=== PATIENT | male | born 1990 | race Caucasian/White ===

== ENCOUNTER 2018-08-21 15:05 | Emergency (ER) | payer BC, OTHER ==
[2018-08-21 15:18] VITALS: BP 161/99
[2018-08-21] MEDS ORDERED: Lidocaine 2% 5 ML SDV ONE (15:21)
[2018-08-21] MEDS ORDERED: Diphtheria,Pertussis(Acell),Tetanus Vaccine 0.5 ML SDV IM ONE (15:34)
--- NOTE | 2018-08-21 15:39 | EDM.PDOC ---
ED HPI GENERAL MEDICAL PROBLEM - General Chief Complaint: General Stated Complaint: Finger laceration Time Seen by Provider: 08/21/18 15:33 Source of Information: Reports: Patient History Limitations: Reports: No Limitations - History of Present Illness INITIAL COMMENTS - FREE TEXT/NARRATIVE: Patient is a 28-year-old gentleman who presents to the emergency department this afternoon with complaint of laceration to left thumb. Patient states while working, accidentally cut finger on sharp metal. Patient does not believe he is up-to-date with tetanus. He'll be given tetanus here in the emergency department. Patient denies any other injury or insult. Onset: Today Duration: Hour(s): Location: Reports: Upper Extremity, Left Quality: Reports: Burning Severity: Mild Improves with: Reports: None Worsens with: Reports: None Context: Reports: Trauma (Cut with sharp instrument) Associated Symptoms: Reports: No Other Symptoms Left Finger-Thumb Pain Score (Numeric/FACES): 3 - Related Data Allergies Allergy/AdvReac Type Severity Reaction Status Date / Time No Known Drug Allergies Allergy Other Verified 08/21/18 15:17 Home Meds: Home Meds . [No Known Home Meds] 08/21/18 [History] Past Medical History Neurological History: Reports: Migraines Dermatologic History: Reports: Other (See Below) Other Dermatologic History: impetigo Social & Family History - Tobacco Use Smoking Status *Q: Current Every Day Smoker Years of Tobacco use: 16 Packs/Tins Daily: 0.7 Second Hand Smoke Exposure: Yes - Caffeine Use Caffeine Use: Reports: Coffee, Soda - Alcohol Use Days Per Week of Alcohol Use: 2 Number of Drinks Per Day: 4 Total Drinks Per Week: 8 - Recreational Drug Use Recreational Drug Use: No ED ROS GENERAL - Review of Systems Review Of Systems: ROS reveals no pertinent complaints other than HPI. Constitutional: Reports: No Symptoms HEENT: Reports: No Symptoms Respiratory: Reports: No Symptoms Cardiovascular: Reports: No Symptoms Endocrine: Reports: No Symptoms GI/Abdominal: Reports: No Symptoms : Reports: No Symptoms Musculoskeletal: Reports: Hand Pain Skin: Reports: Wound (Laceration to left thumb) Neurological: Reports: No Symptoms Psychiatric: Reports: No Symptoms Hematologic/Lymphatic: Reports: No Symptoms Immunologic: Reports: No Symptoms ED EXAM, GENERAL - Physical Exam Exam: See Below Exam Limited By: No Limitations General Appearance: Alert, WD/WN, No Apparent Distress Throat/Mouth: Normal Inspection, Normal Oropharynx, No Airway Compromise Respiratory/Chest: No Respiratory Distress Neurological: Alert, Oriented, Normal Cognition Psychiatric: Normal Affect, Normal Mood Skin Exam: Warm, Dry, Normal Color, No Rash, Wound/Incision (1.5 cm laceration to distal palmar surface of left thumb) ED GENERAL MEDICAL PROCEDURES - Laceration/Wound Repair Left Distal Digit - 1st (Thumb) Lac/wound length in cm: 1.5 Appearance: Superficial Distal NVT: Neuro & Vascular Intact, No Tendon Injury Anesthetic Type: Digital Local Anesthesia - Lidocaine (Xylocaine): 2% Plain Local Anesthetic Volume: 2cc Skin Prep: Providone-Iodine (Betadine) Closed with: Sutures Suture Size: 4-0 # of Sutures: 3 Suture Type: Silk, Interrupted Sterile Dressing Applied: Nurse Tetanus Status Addressed: Yes Complications: No Course - Vital Signs Last Recorded V/S: Last Vital Signs Temp 97.0 F 08/21/18 15:13 Pulse 71 08/21/18 15:13 Resp 18 08/21/18 15:13 BP 161/99 H 08/21/18 15:13 Pulse Ox 99 08/21/18 15:13 - Orders/Labs/Meds Orders: Active Orders 24 hr Category Date Time Status Vaccines to be Administered [RC] PER UNIT ROUTINE Care 08/21/18 15:34 Ordered Diphth,Pertuss(Acell),Tet Vac [Adacel] Med 08/21/18 15:34 Once 0.5 ml IM .ONCE ONE Meds: Medications Discontinued Medications Generic Name Dose Route Start Last Admin Trade Name Mindy PRN Reason Stop Dose Admin Lidocaine Confirm 08/21/18 15:21 Xylocaine-Mpf 2% Administered 08/21/18 15:22 Dose 5 ml .ROUTE .STK-MED ONE - Re-Assessments/Exams Free Text/Narrative Re-Assessment/Exam: 08/21/18 15:38 Patient afebrile, vital signs stable, tolerated procedure well. Patient will have sutures removed in 10 days at PCP. Departure - Departure Time of Disposition: 15:39 Disposition: Home, Self-Care 01 Condition: Good Clinical Impression: Finger laceration Qualifiers: Encounter type: initial encounter Finger: thumb Damage to nail status: without damage Foreign body presence: without foreign body Laterality: left Qualified Code(s): S61.012A - Laceration without foreign body of left thumb without damage to nail, initial encounter - Discharge Information Instructions: Laceration Care, Adult, [id number], Stitches, Susie, or Adhesive Wound Closure, [id number] Referrals: PCP,None [Primary Care Provider] - Additional Instructions: Follow-up with PCP in 10 days for suture removal. Return to emergency department sooner if symptoms continue or worsen. - My Orders Last 24 Hours: My Active Orders 08/21/18 15:34 Vaccines to be Administered [RC] PER UNIT ROUTINE Diphth,Pertuss(Acell),Tet Vac [Adacel] 0.5 ml IM .ONCE ONE - Assessment/Plan Last 24 Hours: My Active Orders 08/21/18 15:34 Vaccines to be Administered [RC] PER UNIT ROUTINE Diphth,Pertuss(Acell),Tet Vac [Adacel] 0.5 ml IM .ONCE ONE Assessment:: Laceration repair to right thumb Plan: Follow-up with PCP
[2018-08-21] MEDS ORDERED: Bacitracin/Neomycin/Polymyxin B Oint 0.9 GM U/D Packet ONE (15:44)
[2018-08-21] MEDS ORDERED: Bacitracin/Neomycin/Polymyxin B Oint 0.9 GM U/D Packet TOP ONE (15:52)
== END 2018-08-21 15:48 | disposition home or self-care (01) ==
LOC: KA.ED 15:05
DX: S61.012A Laceration without foreign body of left thumb without damage to nail, initial encounter (principal); Z23 Encounter for immunization; F17.210 Nicotine dependence, cigarettes, uncomplicated; W26.8XXA Contact with other sharp object(s), not elsewhere classified, initial encounter
CPT/HCPCS: 12001; 90471; 90715; 99283; J2001

== ENCOUNTER 2021-09-01 01:25 | Emergency (ER) | payer BC, OTHER ==
[2021-09-01] MEDS ORDERED: Sodium Chloride 0.9% 10 ML Syringe FLUSH PRN (01:57)
[2021-09-01 02:16] LABS: ANION GAP 16.5 mmol/L (5-15)
[2021-09-01 02:27] LABS: BARBITURATE SCREEN,URINE NEGATIVE (NEGATIVE); BENZODIAZEPINES SCREEN,URINE NEGATIVE (NEGATIVE)
[2021-09-01 02:28] LABS: TCA SCREEN,URINE NEGATIVE (NEGATIVE); THC SCREEN,URINE 50 NG/ML NEGATIVE (NEGATIVE)
[2021-09-01 02:40] VITALS: BP 139/94; PULSE 65
== END 2021-09-01 02:50 | disposition home or self-care (01) ==
LOC: KA.ED 01:25
DX: F41.9 Anxiety disorder, unspecified (principal); F14.10 Cocaine abuse, uncomplicated; F15.10 Other stimulant abuse, uncomplicated
CPT/HCPCS: 36415; 71046; 80053; 80305-QW; 84484; 85025; 85379; 93005; 99284

== ENCOUNTER 2024-01-11 19:14 | Emergency (ER) | payer BC ==
[2024-01-11] MEDS ORDERED: Sodium Chloride 0.9% 10 ML Syringe FLUSH PRN (19:40)
[2024-01-11 19:49] LABS: APPEARANCE,URINE SLIGHTLY CLOUDY (CLEAR); BASOPHILS ABSOLUTE AUTO 0.05 10^3/uL (0.00-0.10); BASOPHILS PERCENT AUTO 0.7 % (0.0-1.0); BILIRUBIN,URINE NEGATIVE (NEGATIVE); COLOR,URINE YELLOW (YELLOW); EOSINOPHILS ABSOLUTE AUTO 0.15 10^3/uL (0.10-0.30); EOSINOPHILS PERCENT AUTO 2.2 % (1.0-3.0); GLUCOSE,URINE NEGATIVE (NEGATIVE); HEMATOCRIT 46.6 % (40.0-52.0); HEMOGLOBIN 16.1 g/dL (13.0-17.0); IMMATURE GRAN ABSOLUTE AUTO 0.01 10^3/uL (0.00-0.50); IMMATURE GRAN PERCENT AUTO 0.1 % (0.0-5.0); KETONES,URINE NEGATIVE (NEGATIVE); LEUKOCYTE ESTERASE,URINE NEGATIVE (NEGATIVE); MEAN CORPUSCULAR HEMOGLOBIN 31.4 pg (27.0-31.0); MEAN CORPUSCULAR HGB CONC 34.5 g/dL (32.0-36.0); MEAN CORPUSCULAR VOLUME 90.8 fL (82.0-92.0); MEAN PLATELET VOLUME 8.5 fL (7.4-10.4); MONOCYTES ABSOLUTE AUTO 0.58 10^3/uL (0.10-0.80); MONOCYTES PERCENT AUTO 8.3 % (2.0-8.0); NEUTROPHILS ABSOLUTE AUTO 3.87 10^3/uL (2.50-7.00); NEUTROPHILS PERCENT AUTO 55.7 % (50.0-70.0); NITRITE,URINE NEGATIVE (NEGATIVE); OCCULT BLOOD,URINE LARGE (NEGATIVE); PH,URINE 5.5 (5.0-9.0); PLATELET COUNT,PLT 293 10^3/uL (150-400); PROTEIN,URINE NEGATIVE (NEGATIVE); RED BLOOD CELL COUNT 5.13 10^6/uL (4.50-6.00); RED CELL DISTRIBUTION WIDTH 12.2 % (11.5-14.5); UROBILINOGEN,URINE 0.2 E.U./dL (0.2-1.0); WHITE BLOOD CELL COUNT,WBC 6.96 10^3/uL (5.00-10.00)
[2024-01-11] MEDS: Sodium Chloride 0.9% 1,000 ML IV ONE (19:55)
[2024-01-11] MEDS: Ketorolac 30 MG/ML SDV IVPUSH ONE (19:55)
[2024-01-11 19:57] LABS: BACTERIA,URINE RARE /HPF (NONE TO FEW); EPITHELIAL CELLS,URINE RARE /LPF; RBC,URINE 40-50 /HPF (0-5); WBC,URINE 0-5 /HPF (0-5)
[2024-01-11 20:01] LABS: ANION GAP 11.1 mmol/L (5-15); BLOOD UREA NITROGEN,BUN 16 mg/dL (7-18); CALCIUM 8.7 mg/dL (8.7-10.3); CARBON DIOXIDE,CO2 31.1 mmol/L (21.0-32.0); CHLORIDE,CL 101 mmol/L (98-107); CREATININE 0.93 mg/dL (0.51-1.17); ESTIMATED GFR 110 mL/min (>=60); GLUCOSE RANDOM 95 mg/dL (70-140); POTASSIUM,K 4.2 mmol/L (3.5-5.1); SODIUM,NA 139 mmol/L (136-145)
[2024-01-11 21:01] VITALS: BP 125/83; PULSE 73
[2024-01-11] MEDS: Acetaminophen/HYDROcodone 325-10 MG Tab PO ONE (21:26)
== END 2024-01-11 21:35 | disposition home or self-care (01) ==
LOC: KA.ED 19:14
DX: N13.2 Hydronephrosis with renal and ureteral calculous obstruction (principal); Z79.899 Other long term (current) drug therapy
CPT/HCPCS: 74176; 80048; 81001; 85025; 96361; 96374; 99284-25; A9270-GY; J1885; J7030

== ENCOUNTER 2024-02-04 16:52 | Emergency (ER) | payer SELFPAY ==
[2024-02-04] MEDS: Lidocaine 1% 20 ML MDV INJECT ONE (17:02)
[2024-02-04] MEDS: Diphtheria,Pertussis(Acell),Tetanus Vaccine 0.5 ML Syringe IM ONE (17:02)
[2024-02-04 17:32] VITALS: BP 125/80; PULSE 90
== END 2024-02-04 17:21 | disposition home or self-care (01) ==
LOC: KA.ED 16:52
DX: S61.211A Laceration without foreign body of left index finger without damage to nail, initial encounter (principal); Z23 Encounter for immunization; W26.8XXA Contact with other sharp object(s), not elsewhere classified, initial encounter
CPT/HCPCS: 12002; 90471; 90715; 99282-25; 99283; J3490